=== PATIENT | male | born 2000 | race Caucasian/White ===

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

== ENCOUNTER 2019-01-28 10:36 | Emergency (ER) | payer MEDICAID ==
[~2019-01-28] VITALS: Ht 170.2 cm; Wt 63.6 kg
[2019-01-28 10:59] VITALS: Ht 170.2 cm; Wt 63.6 kg
[2019-01-28 11:28] LABS: HEMOGLOBIN 16.7 g/dL (13.5-17.5); MCH 31.3 pg (26.0-34.0); MCHC 36.3 g/dL (31.0-37.0); MCV 86.3 fL (80.0-100.0); MEAN PLATELET VOLUME 10.9 fL (7.4-10.4); PLATELET COUNT 283 10x3/uL (130-400); RBC 5.33 10x6/uL (4.20-6.10); RDW 12.5 % (11.5-14.5); WBC 26.2 10x3/uL (4.8-10.8)
[2019-01-28 11:43] LABS: ALBUMIN 5.1 g/dL (3.4-5.0); ALKALINE PHOSPHATASE 123 U/L (46-116); ALT (SGPT) 19 U/L (10-68); BILIRUBIN - TOTAL 1.59 mg/dL (0.2-1.3); CALC OSMOLALITY 282 mosm/kg (275-300); CALCIUM 10.2 mg/dL (8.5-10.1); CHLORIDE - SERUM 101 mmol/L (98-107); GLUCOSE 156 mg/dL (74-106); POTASSIUM - SERUM 3.6 mmol/L (3.5-5.1); PROTEIN - SERUM 8.5 g/dL (6.4-8.2); SODIUM 140 mmol/L (136-145); UREA NITROGEN 14 mg/dL (7-18); eGFR NON AFRICAN AMERICAN > 90 mL/min (90-120)
[2019-01-28 11:45] LABS: AMYLASE - SERUM 65 U/L (25-115); LIPASE 114 U/L (73-393)
[2019-01-28 11:46] LABS: TROPONIN-I < 0.017 ng/mL (0.000-0.060)
[2019-01-28 12:28] LABS: EOSINOPHILS 1 % (0-7); LYMPHOCYTES 12 % (15-50); MONOCYTES 14 % (2-11); NEUTROPHILS 69 % (40-80); PLATELET ESTIMATE NORMAL
[2019-01-28 13:43] LABS: APPEARANCE HAZY (CLEAR); COLOR DK YELLOW (YELLOW); GLUCOSE NEGATIVE (NEGATIVE); NITRITE NEGATIVE (NEGATIVE); PROTEIN NEGATIVE (NEGATIVE)
[2019-01-28 13:44] LABS: BILIRUBIN NEGATIVE (NEGATIVE); KETONE LARGE mg/dL (NEGATIVE)
[2019-01-28 13:46] LABS: BACTERIA FEW /hpf (NONE SEEN); EPITHELIAL CELLS 0-5 /hpf (0-5); RED CELLS - URINE NONE SEEN /hpf (0-5); WHITE CELLS - URINE 0-5 /hpf (0-5)
[2019-01-28] MEDS ORDERED: ZOFRAN ODT4 MG/UDTAB PO (14:11)
[2019-01-28 14:32] VITALS: BP 122/65
== END 2019-01-28 14:32 | disposition home or self-care (01) ==
LOC: D.ER 10:36
PROVIDERS: Emergency Medicine
DX: A08.4 Viral intestinal infection, unspecified (principal); R11.2 Nausea with vomiting, unspecified